=== PATIENT | female | born 1955 | race Two or more races ===

== ENCOUNTER → 2018-12-06 05:43 | Day surgery (SDC) | payer BC ==
[~2018-12-06 05:43] MED LIST: Bacitracin INJECTION* 50,000 UNITS ONE; Buffered Lidocaine 1% SYRIN* 1 ML/SYRINGE INTRADERM ONE; Bupivacaine 0.25% SDV PF* 10 ML VIAL INJ ONE; Clindamycin 900 MG/D5W BAG(*) 900 MG/50 ML BAG IVPB ONE; Dexamethasone IV* 4 MG/ML 1 ML (4 MG) ONE; DiMENhydriNATE IV* 50 MG/ML VIAL ONE; EPHEDrine (Pressors)* 50 MG/ML VIAL ONE; Famotidine IV* 10 MG/ML 2 ML (20 mg) ONE; Gentamicin ADULT (*) 40 MG/ML VIAL (2 ML VIAL = 80 MG) ONE; Heparin VIAL(*) 5000 UNITS/ML VIAL (FIVE THOUSAND) ONE; KETAMINE HCL* 50 MG/ML 10 ML VIAL ONE; Lactated Ringers 1000 ML Bag* 1,000 ML IV SCH; Lidocaine 1% w EPI 1:100,000* MDV 20 ML VIAL ONE; Lidocaine 2% PF * 5 ML VIAL ONE; Midazolam* 1 MG/ML 5 ML VIAL (5 MG) ONE; Naloxone* 0.4 MG/ML 1 ML VIAL IV PRN; Ondansetron INJ* 2 MG/ML VIAL IV PRN; Ondansetron INJ* 2 MG/ML VIAL ONE; PROCHLORPERAZINE INJ 5 MG/ML 2 ML VIAL ONE; Povidone Iodine 5% OPTH* 30 ML BTL ONE; Propofol* 10 MG/ML 20 ML BTL ONE; Scopolamine 1.5 mg* PATCH ONE; fentaNYL* 50 MCG/ML 2 ML VIAL (100 MCG VIAL) ONE; oxyCODONE/Acetamin 5/325 MG* TAB ONE
[2018-12-06] MEDS: Famotidine IV* 10 MG/ML 2 ML (20 mg) IV ONE ×3 (06:53→07:24)
[2018-12-06] MEDS: fentaNYL* 50 MCG/ML 2 ML VIAL (100 MCG VIAL) IV PRN ×4 (11:29→13:00)
[2018-12-06] MEDS: oxyCODONE/Acetamin 5/325 MG* TAB PO PRN ×2 (12:34→14:45)
[2018-12-06 15:18] VITALS: BP 154/81
== END | disposition home or self-care (01) ==
LOC: OR 05:43
PROVIDERS: ATTEND Plastic Surgery
DX: T85.49XA Other mechanical complication of breast prosthesis and implant, initial encounter (principal); Z85.3 Personal history of malignant neoplasm of breast; I10 Essential (primary) hypertension; E11.9 Type 2 diabetes mellitus without complications; E78.5 Hyperlipidemia, unspecified; Z87.891 Personal history of nicotine dependence; K21.9 Gastro-esophageal reflux disease without esophagitis; R06.02 Shortness of breath
CPT/HCPCS: 76000; 88300; 88304; A9270-GY; C1789; J0780; J1100; J1240; J1580; J1644; J2250; J2405; J2704; J3010; J3490; Q4128

== ENCOUNTER 2019-02-12 11:12 | Emergency (ER) | payer BC ==
[2019-02-12 12:37] VITALS: BP 149/63
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
== END 2019-02-12 12:36 | disposition home or self-care (01) ==
LOC: ED 11:12
DX: S29.9XXA Unspecified injury of thorax, initial encounter (principal); Y07.01 Husband, perpetrator of maltreatment and neglect; Y04.8XXA Assault by other bodily force, initial encounter; Y92.009 Unspecified place in unspecified non-institutional (private) residence as the place of occurrence of the external cause; Z87.891 Personal history of nicotine dependence; Z90.11 Acquired absence of right breast and nipple; Z98.82 Breast implant status; Z79.899 Other long term (current) drug therapy; Z88.0 Allergy status to penicillin; Z88.8 Allergy status to other drugs, medicaments and biological substances
CPT/HCPCS: 99282